=== PATIENT | female | born 1975 | race Caucasian/White ===

== ENCOUNTER 2022-12-28 08:53 | Day surgery (SDC) | payer BC ==
[~2022-12-28] VITALS: Ht 167.6 cm; Wt 63.5 kg
[~2022-12-28 08:53] MED LIST: BCP
[2022-12-28] MEDS ORDERED: PHENYLEPHRINE HCL 10 MG/ML VIAL (NEOSYNEPHRINE) ONE (10:59)
[2022-12-28] MEDS ORDERED: MIDAZOLAM HCL 5 MG/5 ML VIAL ONE (10:59)
[2022-12-28] MEDS ORDERED: LR 1,000 ML IV.SOLN IV ONE (10:59)
[2022-12-28] MEDS ORDERED: WATER FOR IRRIGATION,STERILE 1,000 ML IRRIG.SOLN IR ONE (10:59)
[2022-12-28] MEDS ORDERED: ATROPINE SULFATE 0.4 MG/ML VIAL ONE (10:59)
[2022-12-28] MEDS ORDERED: SUCCINYLCHOLINE CHLORIDE 20 MG/ML(QUELICIN) ONE (10:59)
[2022-12-28] MEDS ORDERED: NS IRRIG SOLN 1000 ML IR ONE (10:59)
[2022-12-28] MEDS ORDERED: CLINDAMYCIN PHOSPHATE 600 mg/50mL D5W IV ONE (10:59)
[2022-12-28] MEDS ORDERED: GLYCOPYRROLATE 0.2 MG/ML VIAL ONE (10:59)
[2022-12-28] MEDS ORDERED: ROCURONIUM BROMIDE 10 MG/ML (ZEMURON) ONE (10:59)
[2022-12-28] MEDS ORDERED: SEVOFLURANE 15 MIN GAS INH ONE (10:59)
[2022-12-28] MEDS ORDERED: PROPOFOL 200MG/ 20ML VIAL (DIPRIVAN) IV ONE (10:59)
[2022-12-28] MEDS ORDERED: BUPIVACAINE /EPINEPHRINE/PF 0.5% 30 ML VIAL INJ ONE (10:59)
[2022-12-28] MEDS ORDERED: METOCLOPRAMIDE HCL 10 MG/2 ML VIAL IVP PRN (11:45)
[2022-12-28] MEDS ORDERED: HYDROmorphone 1 MG/ML INJ. CARTRIDGE IVP PRN (11:45)
[2022-12-28] MEDS ORDERED: ACETAMINOPHEN 325 MG TABLET PO ONE (11:45)
[2022-12-28] MEDS ORDERED: ONDANSETRON HCL 4 MG/2 ML VIAL IVP PRN ×2 (11:45→12:15)
[2022-12-28] MEDS ORDERED: KETOROLAC TROMETHAMINE 30 MG VIAL IVP PRN (11:45)
[2022-12-28] MEDS ORDERED: OXYCODONE/ACETAMINOPHEN 5-325 TABLET PO PRN ×2 (12:15)
[2022-12-28] MEDS ORDERED: HYDROcodone/ACETAMIN 5-325 MG TAB (NORCO/ VICODIN) PO PRN (12:15)
[2022-12-28] MEDS ORDERED: KETOROLAC TROMETHAMINE 30 MG VIAL ONE (12:48)
[2022-12-28] MEDS ORDERED: SIMETHICONE 80 MG TAB.CHEW PO SCH (13:00)
[2022-12-28] MEDS ORDERED: ONDANSETRON HCL 4 MG/2 ML VIAL ONE (14:30)
[2022-12-28 18:40] VITALS: BP_SYST 118
== END 2022-12-28 18:40 | disposition home or self-care (01) ==
LOC: SDS 08:53 → SMU 08:54 → SDS 18:40
PROVIDERS: ATTEND Specialist
DX: N83.201 Unspecified ovarian cyst, right side (principal); F32.A Depression, unspecified; F17.210 Nicotine dependence, cigarettes, uncomplicated; N94.89 Other specified conditions associated with female genital organs and menstrual cycle; Z85.3 Personal history of malignant neoplasm of breast; Z17.0 Estrogen receptor positive status [ER+]; Z88.0 Allergy status to penicillin; Z98.890 Other specified postprocedural states
CPT/HCPCS: 87081; 58661; 88305; J0461; J3490 ×3; J1885; J2250; J2405; J2370; J2704; J0330; J7120; C1782; C1727